=== PATIENT | male | born 1970 | race Caucasian/White ===

== ENCOUNTER 2018-10-22 20:22 | Emergency (ER) | payer SELFPAY ==
[2018-10-22 20:32] VITALS: O2SAT 98
[2018-10-22] MEDS ORDERED: SODIUM CHLORIDE 0.9% 50ML 50 ML ONE (20:53)
[2018-10-22] MEDS ORDERED: PROMETHAZINE HCL INJ 25 MG/ML VIAL ONE (20:53)
[2018-10-22] MEDS: fentaNYL CITRATE INJ 50 MCG/ML AMP IV ONE (20:55)
[2018-10-22] MEDS: PROMETHAZINE HCL INJ 12.5 MG in SODIUM CHLORIDE 0.9% 50ML 50 ML IVPB ONE (20:55)
--- NOTE | 2018-10-22 21:19 | ED.PDOC ---
History of Present Illness - General Chief Complaint: Headache Stated Complaint: Sudden onset headache Time Seen by Provider: 10/22/18 20:44 Source: patient Exam Limitations: no limitations - History of Present Illness Initial Comments: PT WAS SITTING ON TOILET WHEN HE BENT OVER TO PICK SOMETHING UP OFF THE FLOOR. ABRUPT ONSET OF OCCIPITAL DIAZ. "WORSE DIAZ OF MY LIFE" Timing/Duration: 1 hour Quality: moderate Head Injury Location: occipital Recent Head Trauma: no recent headache/trauma Improving Factors: nothing Worsening Factors: other - LAYING DOWN Allergies/Adverse Reactions: Allergies NO KNOWN ALLERGY Allergy (Verified 10/22/18 20:27) Home Medications: Ambulatory Orders NK [NK] 10/22/18 Review of Systems - Review of Systems Constitutional: Denies: chills, fever EENTM: States: no symptoms reported Respiratory: Denies: cough, short of breath Cardiology: Denies: chest pain, palpitations Gastrointestinal/Abdominal: Denies: nausea, vomiting Genitourinary: States: no symptoms reported Musculoskeletal: Denies: back pain, neck pain Skin: States: no symptoms reported Neurological: States: headache. Denies: weakness Endocrine: States: no symptoms reported Hematologic/Lymphatic: States: no symptoms reported Past Medical History (General) - Patient Medical History Hx Stroke: No Hx Congestive Heart Failure: No Hx Diabetes: No Hx MRSA: No - Vaccination History Hx Influenza Vaccination: No Hx Pneumococcal Vaccination: No - Social History Hx Tobacco Use: No Hx Alcohol Use: Yes - Social use Family Medical History - Family History Father Family History: No Known Living Status: Still Living Physical Exam - Physical Exam General Appearance: Alert, No apparent distress Eyes, Ears, Nose, Throat Exam: PERRL/EOMI, normal ENT inspection Neck: non-tender, full range of motion, supple Cardiovascular/Chest: regular rate, rhythm, no murmur Respiratory: lungs clear, normal breath sounds Gastrointestinal/Abdominal: normal bowel sounds, non tender, soft Back Exam: normal inspection, no CVA tenderness Extremity: normal range of motion, non-tender Mental Status: alert, 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 SBP 145 WILL START ON CARDENE WITH GOAL OF SBP < 140 10/22/18 22:23 D/W DR SWANN THEY CANNOT TREAT ANEURISMAL BLEED. GIVEN THE FACT THAT PT HAS NO HX OF HYPERTENSION, FEEL MORE LIKELY FROM ANEURYSM. WILL CONTACT [facility]. D/W PT WHO AGREES. BP NOW 120'S WILL HOLD CARDENE FOR NOW. 10/22/18 22:53 [facility] CALLED BACK, ACCEPTED PT IN TRANSFER. NO AIR TRANSPORT SECONDARY TO WEATHER. - EKG/XRAY/CT CT: SUBARACHNOID HEMORRHAGE. Departure - Departure Clinical Impression: Subarachnoid bleed Time of Disposition: 22:54 Disposition: Transfer to Hospital Condition: Fair Departure Forms: ED Discharge - Pt. Copy, Patient Portal Self Enrollment Instructions: DI for Headache Home Medications: Ambulatory Orders NK [NK] 10/22/18 Critical Care Note - Critical Care Note Comments: EVENT: SUBARACHNOID HEMORRHAGE FINDINGS: SUBARACHNOID BLOOD ON CT KAMRAN: NEUROLOGIC INTERVENTION: EMERGENT TRANSFER, CARDENE FOR BP CONTROL, Transfer to Outside Facility - Transfer Information Accepting [facility]: [facility] Reason for Transfer: specialized care not available
--- NOTE | 2018-10-22 21:41 | RAD ---
EXAM DESCRIPTION: Chest,1 View CLINICAL HISTORY: 48 years Male CP COMPARISON: None. FINDINGS: The cardiomediastinal silhouette appears unremarkable. No consolidating infiltrates or pleural effusions. No pneumothorax. IMPRESSION: No acute abnormality is identified. 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
--- NOTE | 2018-10-22 21:47 | CT ---
PROCEDURE: Head CLINICAL HISTORY: 48 years Male WORSE DIAZ OF HIS LIFE COMPARISON: None. TECHNIQUE: Contiguous axial CT images obtained through the brain without IV contrast. This exam was performed according to our department optimization program which includes automated exposure control, adjustment of the mA and/or kv according to patient size and/or use of iterative reconstruction technique. FINDINGS: The ventricles and sulci are within normal limits for the patient's age. There is subarachnoid hemorrhage in the suprasellar cistern and the interpeduncular cistern as well as along the ambient cistern on the left. Small amount of hemorrhage also extends along the tentorium. No evidence of midline shift. No evidence of depressed over a fracture. No evidence of air-fluid levels in the sinuses. IMPRESSION: Subarachnoid hemorrhage in the left aspect of the suprasellar cistern, the interpeduncular notch, the left ambient cistern and extending along the left tentorium as well as adjacent to the left quadrigeminal plate cistern. Dr. Zavala was called and notified of the findings at 9:45 PM central time. Electronically signed by: Dolores Quiroz MD 10/22/2018 9:[address] [facility]
[2018-10-22] MEDS ORDERED: niCARdipine HCL 2.5 MG/ML AMP IVPB ONE (21:54)
[2018-10-22] MEDS ORDERED: SODIUM CHLORIDE 0.9% 250ML 250 ML ONE (21:55)
[2018-10-22] MEDS ORDERED: niCARdipine HCL 25 MG in SODIUM CHLORIDE 0.9% 250ML 240 ML IVPB SCH (22:00)
[2018-10-22] MEDS: ONDANSETRON INJ 4 MG/2 ML VIAL IV ONE (22:53)
[2018-10-22 23:14] VITALS: BP 135/75; TEMP 97.4
== END 2018-10-22 23:05 | disposition short-term general hospital (02) ==
LOC: ER 20:22
DX: I60.9 Nontraumatic subarachnoid hemorrhage, unspecified (principal)
CPT/HCPCS: 36415; 70450; 71045; 80053; 85025; 85610; 85730; A4216; J2405; J2550; J3010